=== PATIENT | female | born 1975 | race Caucasian/White ===

== ENCOUNTER 2016-09-17 01:48 | Emergency (ER) | payer MEDICAID, OTHER ==
[~2016-09-17] VITALS: Ht 175.3 cm; Wt 117.9 kg
[2016-09-17] MEDS ORDERED: DIAZ10TA3 PO (01:53)
--- NOTE | 2016-09-17 01:57 | ED GI ---
General Chief Complaint: Abdominal/GI Problems Stated Complaint: ABD PAIN History of Present Illness Time Seen By Provider: 01:50 Initial Comments 40-year-old female sent in from [facility] in [place]. She presented with diarrhea 2 days upper abdominal pain. And vomiting today. On evaluation she was found to have a 20 white count. They performed an acute abdominal series was sating felt there were some air-fluid levels in both the large and small bowel. They sent her here for further evaluation since they were unable to obtain a CT of her abdomen. Patient states she's had her gallbladder out previously. No fevers or chills. No cough, shortness of breath or chest pain. Allergies and Home Medications Allergies Coded Allergies: No Known Drug Allergies (Unverified , 09/17/16) Home Medications Ciprofloxacin HCl 500 Mg Tablet #14 500 MG PO BID Prescribed by: HANNA BARNES on 09/17/16 0252 Diazepam 10 Mg Tablet 10 MG PO TID PRN PRN ANXIETY (Reported) Review of Systems Constitutional: No chills, No fever EENTM: No Symptoms Reported Respiratory: No Symptoms ReportedDenies Cough Gastrointestinal: See HPI Abdominal Pain Diarrhea Genitourinary: Denies Burning, Denies Frequency Musculoskeletal: no symptoms reported Skin: no symptoms reported Psychiatric/Neurological: No Symptoms Reported Past Lxbbvwy-Rcgzzk-Gcdkoj Hx Patient Social History Alcohol Use: Denies Use Recreational Drug Use: No Smoking Status: Current Everyday Smoker Type Used: Cigarettes Recent Foreign Travel: No Contact w/Someone Who Travel: No Recent Hopitalizations: No Physical Abuse Screen: No Sexual Abuse: No Seasonal Allergies Seasonal Allergies: No Surgeries HX Surgeries: Yes Surgeries: Gallbladder, Tubal Ligation Respiratory Hx Respiratory Disorders: No Cardiovascular Hx Cardiac Disorders: No Neurological Hx Neurological Disorders: No Genitourinary Hx Genitourinary Disorders: No Musculoskeletal Hx Musculoskeletal Disorders: No Endocrine Hx Endocrine Disorders: No HEENT HX ENT Disorders: No Cancer Hx Cancer: No Psychosocial Hx Psychiatric Problems: Yes Behavioral Health Disorders: Anxiety Integumentary HX Skin/Integumentary Disorder: No Blood Transfusions Hx Blood Disorders: No Physical Exam Vital Signs VS - Last 72 Hours, by Label 09/17/16 09/17/16 01:51 02:56 Temp 96.1 96.1 Pulse 91 77 Resp 18 18 B/P 194/117 Pulse Ox 97 97 O2 Delivery Room Air Room Air Capillary Refill : General Appearance: WD/WN no apparent distress HEENT: PERRL/EOMI Neck: non-tender Respiratory: chest non-tender lungs clear normal breath sounds Cardiovascular: regular rate, rhythm no edema Peripheral Pulses: 2+ Radial Pulses (R), 2+ Radial Pulses (L) Gastrointestinal: non tender soft Extremities: normal range of motion Neurologic/Psychiatric: alert oriented x 3 Progress/Results/Core Measures Results/Orders My Orders Orders-HANNA BARNES DO Ct Abdomen/Pelvis W (09/17/16 01:53) Iohexol Injection (Omnipaque 350 Mg/Ml 1 (09/17/16 02:15) Ns (Ivpb) (Sodium Chloride 0.9% Ivpb Bag (09/17/16 02:15) Medications Given in ED Current Medications Medications Dose Ordered Sig/Cici Route Start Time Stop Time Status Last Admin Dose Admin Iohexol 100 ml ONCE ONCE IV 09/17/16 02:15 09/17/16 02:56 DC 09/17/16 02:20 100 ML Sodium Chloride 80 ml ONCE ONCE IV 09/17/16 02:15 09/17/16 02:56 DC 09/17/16 02:20 80 ML Vital Signs/I&O Vital Sign - Last 12Hours 09/17/16 09/17/16 01:51 02:56 Temp 96.1 96.1 Pulse 91 77 Resp 18 18 B/P 194/117 Pulse Ox 97 97 O2 Delivery Room Air Room Air Progress Note : Progress Note reviewed pt labs and xrays for jim brewer, wbc approx 20, normal electrolytes Diagnostic Imaging Diagonstic Imaging: CT Plain Films/CT/US/NM/MRI: abdomen Comments gastroenteritis, no sbo Reviewed: Reviewed Night [facility] Study Departure Impression Impression: Primary Impression: Gastroenteritis Disposition: 01 HOME, SELF-CARE Condition: Stable Departure-Patient Inst. Referrals: NO,LOCAL PHYSICIAN (PCP) Primary Care Physician Patient Instructions: [id number] Scripts Ciprofloxacin HCl 500 Mg [id number] Mg PO BID #14 TAB Prov:HANNA BARNES DO 09/17/16 HANNA BARNES DO Sep 17, 2016 01:57
--- OUTSIDE RECORDS SUMMARY | 2016-09-17 01:57 | XMS REPORT ---
Author MANUEL Roman Organization [employer] Address Unknown Phone Unavailable Care Team Providers Care Cager Operator Name Role Phone MANUEL COUCH CP Unavailable Allergies, Adverse Reactions, Alerts Substance Reaction Event Type N.K.D.A. Info Not Available Non Drug Allergy Problems Problem Type Condition Code Onset Dates Condition Status Problem Unspecified disorder of the teeth and supporting structures 525.9 Active Problem Unspecified essential hypertension 401.9 Active Problem Obesity, unspecified 278.00 Active Problem Anxiety state, unspecified 300.00 Active Assessment Hypertension, essential I10 Active Medications Medication Code System Code Instructions Start Date End Date Status Dosage Latuda [facility] [address]-50 not defined Metoprolol Tartrate [facility] [address]-28 50 mg Orally Twice a day, voucher 1st fill. March 17, 2016 1 tablet with food atenolol NDC 0 not defined Valium [facility] [address]-30 10 mg December 05, 2012 take 1 tablet by Oral route 2 times per day Procedures Procedure Coding System Code Date Office Visit, Est Pt., Level 3 CPT-4 21904 March 17, 2016 Vital Signs Date/Time: March 17, 2016 Cardiac Monitoring Heart Rate 104 bpm Weight 275.6 lbs Height 69 in BMI 40.69 Index Blood Pressure Diastolic 110, 184 mmHg Blood Pressure Systolic 220 mmHg Results No Known Results Summary Purpose [employer] Submission
[2016-09-17] MEDS ORDERED: NS 100 ML (IVPB) BAG IV ONE (02:15)
[2016-09-17] MEDS ORDERED: IOHEXOL 350 MG/ML 100 ML (OMNIPAQUE 350) VIAL IV ONE (02:15)
[2016-09-17] MEDS ORDERED: CIPR500T4 PO (02:52)
[2016-09-17 02:56] VITALS: BP 198/107
--- NOTE | 2016-09-17 07:55 | Diagnostic Imaging Report ---
Clinical indication: Patient with abdominal pain x2 days. Patient has history of gallbladder surgery. Exam: Axial CT scan of the abdomen and pelvis performed with 100 cc of Omnipaque 350 IV contrast. Portal venous and delayed phases were obtained. Coronal and sagittal reformatted images were created. Comparison: None. Findings: The visualized lung bases are clear. Chronic pars defect involving the right L5 pars interarticularis region is seen. There is a diffuse disc bulge at the L3-L4 and L4-5 levels with moderate loss of intervertebral disc height. There is at least mild central canal narrowing and at least moderate bilateral neuroforaminal narrowing at these levels. Gallbladder surgically absent. There is diffuse low-attenuation changes seen throughout the liver likely representing fatty infiltration. Liver is otherwise unremarkable. The spleen, pancreas, adrenal glands, and both kidneys are unremarkable. There is no evidence of hydronephrosis. There is no intra-abdominal free fluid, free air, or lymphadenopathy. There is nonspecific air-fluid levels seen throughout the colon. There is no bowel wall thickening. There is also air-fluid levels seen in multiple loops of small bowel. Segments of small bowel are mildly dilated in the left abdomen which measures 3.3 cm. These findings are nonspecific and there is no transition point seen. Small fat-containing umbilical hernia seen. Appendix is not visualized on this exam. There is no pericecal inflammation or evidence of appendicitis on this exam. The uterus and adnexal regions are unremarkable. The bladder is partially fluid distended and unremarkable as visualized. The extra-abdominal and extrapelvic soft tissue structures are unremarkable. IMPRESSION: 1.: There are multiple distended loops of small bowel and colon seen. There is no bowel wall thickening and there is no transition point seen. These findings may be related to gastroenteritis or ileus. Intestinal obstruction is suspected to be less likely. If there is concern for obstruction, then serial x-rays of the abdomen may help better evaluate. 2: Diffuse fatty infiltration of the liver. 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 I agree with [employer] report. Dictated by: Dictated on workstation # [id number]
== END 2016-09-17 02:56 | disposition home or self-care (01) ==
LOC: ER 01:53
DX: K52.9 Noninfective gastroenteritis and colitis, unspecified (principal); F17.210 Nicotine dependence, cigarettes, uncomplicated
CPT/HCPCS: 74177